=== PATIENT | male | born 1995 | race Caucasian/White ===

== ENCOUNTER 2019-12-27 10:07 | Outpatient (CLI) | payer OTHER, SELFPAY ==
[2019-12-27 10:35] LABS: Mean Corpuscular HGB Conc 34.9 g/dl (32-36); Mean Corpuscular Hemoglobin 30.6 pg (26-34); Mean Corpuscular Volume 87.8 fl (80-100); Mean Platelet Volume 9.4 fl (7.4-10.4); Platelet Count Result 236 k/mm3 (150-375); Red Cell Distribution Width 12.1 % (11.5-14.5); White Blood Count 5.2 K/mm3 (4.5-10.0)
[2019-12-27 10:49] LABS: Anion Gap 7 mmol/L (8-16); Blood Urea Nitrogen 13 mg/dL (9-20); Calcium 9.3 mg/dL (8.4-10.2); Carbon Dioxide 32 mmol/L (22-30); Chloride 100 mmol/L (98-107); Estimated Glomerular Filt Rate > 60; Glucose 100 mg/dL (75-110); Potassium 4.1 mmol/L (3.4-5.0); Sodium 139 mmol/L (137-145)
== END 2019-12-27 10:08 | disposition home or self-care (01) ==
LOC: ANHLAB 10:10
PROVIDERS: PCP Family Medicine; Visit Provider Nurse Practitioner Family
DX: R00.2 Palpitations (principal)
CPT/HCPCS: 36415; 80048; 84443; 85027

== ENCOUNTER 2020-01-07 15:54 | Outpatient (CLI) | payer OTHER, SELFPAY ==
--- NOTE | 2020-01-11 11:46 | WPDHOLTEREM ---
Holter/Event Monitor Holter/Event Monitor Date of procedure: 01/07/20 Procedure Type: 24 hour holter monitor Indications: Palpitations Conclusion: 1. 24 hour holter monitor on 01/07/20. 2. Underlying rhythm is sinus rhythm. HR range 51-141 bpm; average HR 87 bpm. 3. There are 3 premature supraventricular complexes. No supraventricular tachycardia. 4. There is one premature ventricular complex. No ventricular tachycardia. 5. No sinoatrial or atrioventricular blocks. No significant pauses greater than 2 seconds. 6. No symptoms available for correlation.
== END 2020-01-07 15:55 | disposition home or self-care (01) ==
LOC: ANHCARD 15:55
PROVIDERS: PCP Family Medicine; Visit Provider Nurse Practitioner Family
DX: R00.2 Palpitations (principal)
CPT/HCPCS: 93225; 93226

== ENCOUNTER 2022-09-06 15:00 | Outpatient (CLI) | payer OTHER, SELFPAY ==
--- NOTE | ~2022-09-06 | XR_ITS ---
XR chest 2V DATE: 09/06/2022 15:22 INDICATION: Chest pain TECHNIQUE: PA and lateral views COMPARISON: 11/01/2009 two-view chest FINDINGS: Normal heart size. No hilar or mediastinal enlargement. No pulmonary infiltrate or consolid ation, pleural effusion or pulmonary vascular congestion or pneumothorax is detected. Included skeletal structures are unremarkable. IMPRESSION: Negative Reviewed, dictated and finalized at location [] IMPRESSION: Negative
--- NOTE | 2022-09-06 15:19 | ECG_ITS ---
Measurements Intervals [place] Rate: 76 P: 52 SC: 137 QRS: 72 QRSD: 94 T: 61 QT: 348 QTc: 393 Interpretive Statements SINUS RHYTHM WITH MARKED SINUS ARRHYTHMIA NO PREVIOUS ECG AVAILABLE FOR COMPARISON Electronically Signed On 09-07-2022 8:57:34 CDT by Dorothea Floyd M.D.
== END 2022-09-06 15:01 | disposition home or self-care (01) ==
PROVIDERS: PCP Family Medicine; Visit Provider Nurse Practitioner Family
DX: R07.89 Other chest pain (principal); I49.8 Other specified cardiac arrhythmias
CPT/HCPCS: 71046; 93005

== ENCOUNTER 2022-09-26 10:23 | Outpatient (CLI) | payer OTHER, SELFPAY ==
--- NOTE | 2022-10-03 11:48 | WPDHOLTEREM ---
Holter/Event Monitor Holter/Event Monitor Date of procedure: 09/26/22 Holter/Event Procedure: 24 Hr Holter Monitor Indications: Cardiac arrhythmia Conclusion: 1. 24 hour holter monitor on 09/26/22. 2. Underlying rhythm is sinus rhythm. HR range 49-135 bpm; average HR 76 bpm. 3. There are 2 premature supraventricular complexes. No supraventricular tachycardia. 4. No premature ventricular complexes. No ventricular tachycardia. 5. No significant pauses greater than 2 seconds. 6. No symptoms available for correlation.
== END 2022-09-26 10:24 | disposition home or self-care (01) ==
PROVIDERS: PCP Family Medicine; Visit Provider Nurse Practitioner Family
DX: I49.9 Cardiac arrhythmia, unspecified (principal)
CPT/HCPCS: 93225; 93226